=== PATIENT | female | born 1970 | race Caucasian/White ===

== ENCOUNTER 2017-07-07 18:41 | Observation (INO) | payer OTHER ==
[2017-07-07] MEDS ORDERED: ONDANSETRON HCL IV 4 MG/2 ML VIAL IVP ONE ×2 (18:55→21:03)
--- NOTE | 2017-07-07 18:59 | Emergency Department Record ---
History of Present Illness - General Chief Complaint: Abdominal Pain Stated Complaint: VOMITTING,PAIN JUST BELOW THE RIBS Time Seen by Provider: 07/07/17 18:54 Source: Patient Mode of Arrival: Ambulatory Limitations: No limitations - History of Present Illness Initial Comments: 46 yo female presents to ED for evaluation of epigastric abdominal pain and vomiting x 2 that began 1.5 hours prior to arrival. Patient reports eating a large [place]ian meal prior to her symptoms starting, denies fevers, chills, or recent illness. Patient denies previous abdominal surgeries, and denies health problems at her baseline. MD Complaint: Abdominal pain Onset/Timin -: Minutes(s) Location: Epigastric Radiation: LUQ, RUQ Severity: Moderate Quality: Aching Consistency: Constant Improves With: Nothing Worsens With: Nothing Associated Symptoms: Denies other symptoms - Related Data Patient : No Allergies Allergy/AdvReac Type Severity Reaction Status Date / Time No Known Drug Allergies Allergy Verified 07/07/17 18:47 Review of Systems Constitutional: Denies: Chills, Fever, Malaise, Night sweats Eyes: Denies: Eye discharge, Eye pain ENT: Denies: Congestion, Ear pain, Epistaxis Respiratory: Denies: Cough, Dyspnea Cardiovascular: Denies: Chest pain, Dyspnea on exertion Endocrine: Denies: Fatigue, Heat or cold intolerance Gastrointestinal: Reports: Abdominal pain, Nausea, Vomiting. Denies: Constipation Genitourinary: Denies: Incontinence, Retention Musculoskeletal: Denies: Arthralgia, Back pain, Gout, Joint swelling Skin: Denies: Bruising, Change in color Neurological: Denies: Abnormal gait, Confusion, Headache, Seizure Psychiatric: Denies: Anxiety Hematological/Lymphatic: Denies: Anemia, Blood Clots Past Medical History - SOCIAL HISTORY Smoking Status: Never smoker Drug Use: None - RESPIRATORY Hx Respiratory Disorders: No - CARDIOVASCULAR Hx Cardio Disorders: No - NEURO Hx Neuro Disorders: No - GI Hx GI Disorders: No - Hx Genitourinary Disorders: No - ENDOCRINE Hx Endocrine Disorders: No - MUSCULOSKELETAL Hx Musculoskeletal Disorders: No - PSYCH Hx Psych Problems: Yes Hx Anxiety: Yes Hx Depression: Yes - HEMATOLOGY/ONCOLOGY Hx Hematology/Oncology Disorders: No Physical Exam - General General Appearance: Alert, Oriented x3, Cooperative, Moderate distress Limitations: No limitations - Head Head exam: Atraumatic, Normocephalic, Normal inspection Head exam detail: negative: Abrasion, Contusion, Ziegler's sign, General tenderness, Hematoma, Laceration - Eye Eye exam: Normal appearance. negative: Conjunctival injection, Periorbital swelling, Periorbital tenderness, Scleral icterus - ENT Ear exam: negative: Auricular hematoma, Auricular trauma Nasal Exam: negative: Active bleeding, Discharge, Dried blood, Foreign body Mouth exam: negative: Drooling, Laceration, Muffled voice, Tongue elevation - Neck Neck exam: Normal inspection. negative: Meningismus, Tenderness - Respiratory Respiratory exam: Normal lung sounds bilaterally. negative: Rales, Respiratory distress, Rhonchi, Stridor - Cardiovascular Cardiovascular Exam: Regular rate, Normal rhythm, Normal heart sounds - GI/Abdominal GI/Abdominal exam: Soft, Tenderness (Mild TTP epigastric pain on examination). negative: Rebound, Rigid - Rectal Rectal exam: Deferred - exam: Deferred - Extremities Extremities exam: Normal inspection. negative: Calf tenderness, Pedal edema, Tenderness - Back Back exam: Denies: CVA tenderness (R), CVA tenderness (L) - Neurological Neurological exam: Alert, Normal gait, Oriented X3 - Psychiatric Psychiatric exam: Normal affect, Normal mood - Skin Skin exam: Normal color. negative: Abrasion Type of lesion: negative: abrasion Course - Reevaluation(s) Reevaluation #1: 07/07/17 19:32 Labs reviewed, mild elevation AST/ALT, labs are otherwise grossly unremarkable for an acute process. Reevaluation #2: 07/07/17 20:20 CT Abdomen and Pelvis: GB wall thickening with stones present Mild surrounding fat stranding suggesting early cholecystitis No duct dilatation Dr. Manley paged for consultation. Reevaluation #3: 07/07/17 20:56 Awaiting return page from Dr. Manley, case was discussed with Devika Wilder, will admit to medicine with surgery consultation in the morning. Patient and her were updated on the plan of care as discussed. Medical Decision Making - Lab Data Result diagrams: 07/07/17 19:00 07/07/17 19:00 Disposition Disposition: Admit Clinical Impression: Acute cholecystitis Disposition: Still a Patient at [facility] Decision to Admit: Admit from ER Decision to Admit Date: 07/07/17 Decision to Admit Time: 20:50 Condition: (2) Stable Forms: Patient Portal Access Time of Disposition: 20:51 Quality - Quality Measures Quality Measures: N/A - Blood Pressure Screening Does Patient Have Any of the Following: No Blood Pressure Classification: Pre-Hypertensive BP Reading Systolic Measurement: 135 Diastolic Measurement: 76 Screening for High Blood Pressure: < Pre-Hypertensive BP, F/U Documented > [ G8950] Pre-Hypertensive Follow-up Interventions: Referral to alternative/primary care provider.
[2017-07-07] MEDS ORDERED: 0.9 % SODIUM CHLORIDE 1000ML 1,000 ML IV SCH (19:00)
[2017-07-07 19:11] LABS: BASO % 0.4 % (0-6); EOS % 1.4 % (0-6); HEMATOCRIT 36.7 % (35.0-47.0); HEMOGLOBIN 12.3 gm/dl (11.6-16.0); LYMPH % 23.4 % (16-45); MEAN CELL VOLUME 84.8 fl (81-97); MEAN CORPUSCULAR HEMOGLOBIN 28.4 pg (27-33); MEAN CORPUSCULAR HGB CONC 33.5 g/dl (32-36); MEAN PLATELET VOLUME 9.6 fl (7.4-10.4); MONO % 8.8 % (0-9); PLATELET COUNT 248 K/uL (130-400); RED BLOOD COUNT 4.33 M/uL (3.80-5.40); RED CELL DISTRIBUTION WIDTH 13.5 % (11.5-14.5); WHITE BLOOD COUNT W/O DIFF 8.3 K/uL (4.2-12.2)
[2017-07-07 19:12] LABS: URINE APPEARANCE CLEAR; URINE BILIRUBIN NEGATIVE (NEGATIVE); URINE BLOOD TRACE-I (NEGATIVE); URINE COLOR YELLOW; URINE GLUCOSE (UA) NEGATIVE (NEGATIVE); URINE KETONE NEGATIVE (NEGATIVE); URINE LEUKOCYTE ESTERASE NEGATIVE (NEGATIVE); URINE NITRITE NEGATIVE (NEGATIVE); URINE PROTEIN NEGATIVE (NEGATIVE)
[2017-07-07 19:15] LABS: HCG,QUALITATIVE URINE NEGATIVE (NEGATIVE)
[2017-07-07 19:24] LABS: BLOOD UREA NITROGEN 12 mg/dL (6-20); CREATININE 0.7 mg/dL (0.5-0.9); EST GLOMERULAR FILTRATION RATE > 60 mL/min; TOTAL PROTEIN 7.2 g/dL (6.6-8.7)
[2017-07-07 19:25] LABS: URINE BACTERIA FEW; URINE EPITHELIAL CELLS 0 - 2 (FEW); URINE RBC 0 - 2 (NONE SEEN); URINE WBC 0 - 2 (0-2/hpf)
[2017-07-07 19:26] LABS: GLUCOSE,RANDOM 121 mg/dL (74-109)
[2017-07-07 19:29] LABS: ALB/GLOB RATIO 1.3 (1.1-1.8); ALKALINE PHOSPHATASE 104 U/L (35-104); ALT/SGPT 42 U/L (<33); AST/SGOT 59 U/L (10.0-35.0); LIPASE 41 U/L (13-60)
[2017-07-07] MEDS ORDERED: MORPHINE SULFATE 5 MG/ML PFS IVP ONE (19:47)
[2017-07-07] MEDS ORDERED: AMPICILLIN SODIUM/SULBACTAM NA 3 G in 0.9 % SODIUM CHLORIDE 100ML 100 ML IVPB ONE (20:29)
[2017-07-07] MEDS ORDERED: SEVOFLURANE 250 ML INH ONE (21:03)
[2017-07-07] MEDS ORDERED: BUPIVACAINE 0.75% W/EPI MPF 30ML VIAL IVP ONE (21:03)
[2017-07-07] MEDS ORDERED: GLYCOPYRROLATE 0.2 MG/ML ML IV ONE (21:03)
[2017-07-07] MEDS ORDERED: KETOROLAC 30 MG/ML VIAL IVP ONE (21:03)
[2017-07-07] MEDS ORDERED: MIDAZOLAM HCL 2MG/2ML VIAL IV ONE (21:03)
[2017-07-07] MEDS ORDERED: SUCCINYLCHOLINE 20 MG/ML 10ML IVP ONE (21:03)
[2017-07-07] MEDS ORDERED: ONDANSETRON HCL IV 4 MG/2 ML VIAL IVP PRN (21:03)
[2017-07-07] MEDS ORDERED: NEOSTIGMINE 1 MG/1 ML,10ML VIAL IV ONE (21:03)
[2017-07-07] MEDS ORDERED: PROPOFOL 10 MG/ML VIAL IV ONE (21:03)
[2017-07-07] MEDS ORDERED: ROCURONIUM BROMIDE 50MG/5ML VIAL IV ONE (21:03)
[2017-07-07] MEDS ORDERED: LIDOCAINE 2% MDV (20MG/ML) 20ML VIAL IV ONE (21:03)
[2017-07-07] MEDS ORDERED: FENTANYL PF 100MCG/2ML VIAL IV ONE (21:03)
[2017-07-07] MEDS ORDERED: MORPHINE SULFATE 5 MG/ML PFS IVP PRN (21:03)
[2017-07-07] MEDS ORDERED: ATORVASTATIN 20 MG TABLET PO SCH (22:00)
[2017-07-07] MEDS: 0.9 % SODIUM CHLORIDE 1000ML 1,000 ML IV PRN (22:04)
[2017-07-08] MEDS: AMPICILLIN SODIUM/SULBACTAM NA 3 G in 0.9 % SODIUM CHLORIDE 100ML 100 ML IVPB SCH ×2 (03:26→08:21)
[2017-07-08] MEDS: 0.9 % SODIUM CHLORIDE 1000ML 1,000 ML IV PRN (06:14)
--- NOTE | 2017-07-08 07:34 | CT SCAN REPORT ---
EXAM: CT SCAN OF THE ABDOMEN AND PELVIS WITH CONTRAST HISTORY: PAIN ACROSS THE ABDOMEN UNDER THE RIB CAGE FOR THE PAST TWO HOURS. TECHNIQUE: Standard CT imaging of the abdomen and pelvis was performed with contrast. 100 ml of Omnipaque 300 were administered. Comparison: 05/20/16. FINDINGS: There is minor dependent atelectasis at the lung bases. The lung bases are otherwise clear. The liver appears normal. The gallbladder contains numerous small calcified stones. There is the suggestion for mild wall thickening and minor pericholecystic fat stranding. There is no biliary ductal dilatation. The pancreas, spleen, and adrenal glands are normal. Both kidneys and ureters are unremarkable. The aorta is normal in caliber. There is no retroperitoneal lymph adenopathy. The stomach and epigastrium are normal. The large and small bowel loops including the appendix are normal. There are no focal inflammatory changes. There is no pneumoperitoneum or ascites. There are multiple cysts within the left ovary, the largest measures 3.6 x 2.9 cm. Follow-up is recommended to confirm resolution. The uterus and right ovary are normal. There is no free fluid within the pelvis. The urinary bladder is unremarkable. Degenerative changes are present within the spine. A small fat containing periumbilical hernia is present and is unchanged. IMPRESSION: 1. CHOLELITHIASIS WITH SUGGESTION FOR MILD GALLBLADDER THICKENING AND PERICHOLECYSTIC INFLAMMATION. THE APPEARANCE IS SUSPICIOUS FOR DEVELOPING ACUTE CHOLECYSTITIS. 2. THERE IS NO BILIARY DUCTAL DILATATION. 3. MULTIPLE LEFT OVARIAN CYSTS THE LARGEST OF WHICH MEASURES 3.6 X 2.9 CM. A FOLLOW-UP PELVIC ULTRASOUND IS RECOMMENDED TO CONFIRM RESOLUTION. 4. SMALL FAT CONTAINING PERIUMBILICAL HERNIA. JOB NUMBER: [id number] [facility]
--- NOTE | 2017-07-08 09:25 | History & Physical ---
History of Present Illness - Date of Service Date of Service for History & Physical: 07/08/17 - History of Present Illness Admitting Diagnosis: Acute cholecystitis. Nausea/vomiting History of Present Illness: 46 y/o female with history of high cholesterol and anxiety/depression presented to ER with 1.5 hour of epigastric abdominal pain and vomiting x 2 after eating large meal of greenlandic food. Denies recent illness, diarrhea, sick contacts. Is not a smoker While in ED CT abdomen showed gall bladder wall thickening with fat stranding consistent with cholecystitis. WBC count normal. Liver enzymes slightly elevated, lipase normal. Unasyn 3gm Q 6 hrs, NPO, IV analgesia initiated in ED Admitted to Medicine awaiting surgical consult this am by Dr Manley. Nausea and vomiting subsided since admit, continues to have upper abdominal " soreness". Has been afebrile, VSS Travel Screening - Travel/Exposure Within Last 30 Days Have you traveled within the last 30 days?: No - Travel/Exposure Within Last Year Have you traveled outside the [place] in the last year?: Yes Location Detail:: [facility] in October 2016 - Additonal Travel Details Have you been exposed to anyone with a communicable illness?: No - Travel Symptoms Symptom Screening: None Review of Systems Constitutional: Denies: Chills, Fever, Malaise, Night sweats Eyes: Denies: Eye discharge, Eye pain ENT: Denies: Congestion, Ear pain, Epistaxis Respiratory: Denies: Cough, Dyspnea Cardiovascular: Denies: Chest pain, Dyspnea on exertion Endocrine: Denies: Fatigue, Heat or cold intolerance Gastrointestinal: Reports: Abdominal pain, Nausea, Vomiting. Denies: Constipation Genitourinary: Denies: Incontinence, Retention Musculoskeletal: Denies: Arthralgia, Back pain, Gout, Joint swelling Skin: Denies: Bruising, Change in color Neurological: Denies: Abnormal gait, Confusion, Headache, Seizure Psychiatric: Denies: Anxiety Hematological/Lymphatic: Denies: Anemia, Blood Clots Past Medical History - SOCIAL HISTORY Smoking Status: Never smoker Alcohol Use: Rare - RESPIRATORY Hx Respiratory Disorders: No - CARDIOVASCULAR Hx Cardio Disorders: No - NEURO Hx Neuro Disorders: Yes Hx Headaches: Yes (occass) - GI Hx GI Disorders: Yes Hx Abdominal Pain: Yes Hx Nausea/Vomiting: Yes - Hx Genitourinary Disorders: No - ENDOCRINE Hx Endocrine Disorders: No - MUSCULOSKELETAL Hx Musculoskeletal Disorders: Yes Hx Arthritis: Yes (toes and thumbs) - PSYCH Hx Psych Problems: Yes Hx Anxiety: Yes Hx Depression: Yes - HEMATOLOGY/ONCOLOGY Hx Hematology/Oncology Disorders: No Family Medical History Any Significant Family History?: Yes Hx Cancer: Father, Mother Hx Diabetes: Father Hx Heart Disease: Father Hx HTN: Father H&P Meds/Allergies - Allergies Allergies: Allergies Allergy/AdvReac Type Severity Reaction Status Date / Time No Known Drug Allergies Allergy Verified 07/07/17 18:47 - Home Medications Home Medications Medication Instructions Recorded Confirmed Last Taken Sertraline HCl [Zoloft] 50 mg PO DAILY 07/08/17 07/08/17 Unknown - Active Medications Active Medications: Current Medications Atorvastatin Calcium (Lipitor) 20 mg PO QHS [facility] Last Admin: 07/07/17 21:16 Dose: Not Given Famotidine (Pepcid) 20 mg PO PREOP ONE Stop: 07/08/17 09:31 Sodium Chloride () 1,000 mls @ 125 mls/hr IV .Q8H PRN PRN Reason: LARGE VOLUME IV Last Admin: 07/08/17 06:14 Dose: 125 mls/hr Ampicillin Sodium/Sulbactam (Sodium 3 g/ Sodium Chloride) 100 mls @ 200 mls/hr IVPB Q6H [facility] Last Infusion: 07/08/17 08:51 Dose: Infused Acetaminophen (Ofirmev) 1,000 mg in 100 mls @ 400 mls/hr IVPB PREOP ONE Stop: 07/08/17 09:44 Meclizine HCl (Antivert) 25 mg PO PREOP ONE Stop: 07/08/17 09:31 Metoclopramide HCl (Reglan) 10 mg PO PREOP ONE Stop: 07/08/17 09:31 Morphine Sulfate (Morphine Sulfate) 5 mg IVP Q4HR PRN PRN Reason: Abdominal Pain Stop: 07/14/17 21:04 Ondansetron HCl (Zofran) 4 mg IVP Q4H PRN PRN Reason: NAUSEA Sertraline HCl (Zoloft) 50 mg PO DAILY [facility] Last Admin: 07/08/17 09:15 Dose: Not Given Physical Exam - Vital Signs Vital Signs: Vital Signs - Last 24 Hrs Temp Pulse Pulse Resp BP BP BP 07/08/17 07:40 16 07/08/17 07:00 97.3 F L 63 133/83 07/08/17 03:03 98.3 F 65 16 116/73 07/07/17 23:00 98.9 F 77 16 144/89 07/07/17 21:33 66 18 07/07/17 21:04 98.1 F 79 18 136/80 07/07/17 21:03 99 F 66 16 143/89 Pulse Ox 07/08/17 07:40 07/08/17 07:00 93 L 07/08/17 03:03 94 L 07/07/17 23:00 94 L 07/07/17 21:33 07/07/17 21:04 98 07/07/17 21:03 98 - General General Appearance: Alert, Oriented x3, Cooperative, No acute distress Limitations: No limitations - Head Head exam: Atraumatic, Normocephalic, Normal inspection Head exam detail: negative: Abrasion, Contusion, Ziegler's sign, General tenderness, Hematoma, Laceration - Eye Eye exam: Normal appearance. negative: Conjunctival injection, Periorbital swelling, Periorbital tenderness, Scleral icterus - ENT Ear exam: negative: Auricular hematoma, Auricular trauma Nasal Exam: negative: Active bleeding, Discharge, Dried blood, Foreign body Mouth exam: negative: Drooling, Laceration, Muffled voice, Tongue elevation - Neck Neck exam: Normal inspection. negative: Meningismus, Tenderness - Respiratory Respiratory exam: Normal lung sounds bilaterally. negative: Rales, Respiratory distress, Rhonchi, Stridor - Cardiovascular Cardiovascular Exam: Regular rate, Normal rhythm, Normal heart sounds Peripheral Pulses: 2+: Dorsalis Pedis (R), Dorsalis Pedis (L) - GI/Abdominal GI/Abdominal exam: Soft, Tenderness (Mild TTP epigastric pain on examination). negative: Rebound, Rigid - Rectal Rectal exam: Deferred - exam: Deferred - Extremities Extremities exam: Normal inspection. negative: Calf tenderness, Pedal edema, Tenderness - Back Back exam: Denies: CVA tenderness (R), CVA tenderness (L) - Neurological Neurological exam: Alert, Normal gait, Oriented X3 - Psychiatric Psychiatric exam: Normal affect, Normal mood - Skin Skin exam: Normal color. negative: Abrasion Type of lesion: negative: abrasion Results - Labs Result Diagrams: 07/07/17 19:00 07/07/17 19:00 VTE H&P Assessment - Risk for VTE Risk for VTE: Yes Risk Level: Low Risk Assessment Date: 07/08/17 Risk Assessment Time: 09:24 VTE Orders Placed or Will Be Placed: Yes Plan - Detailed Diagnosis and Plan (1) Acute cholecystitis Current Visit: Yes Status: Acute Base Code: K81.0 - ACUTE CHOLECYSTITIS Comment: - surgical consult this am with Dr Manley for questionable open vs. laparascopic cholecyctectomy - Unasyn 3gm Q6hrs - Morphine 5mg IVP PRN for pain control - NPO - cholecystectomy pre-op protocol in place (2) Full code status Current Visit: Yes Status: Acute Base Code: Z78.9 - OTHER SPECIFIED HEALTH STATUS (3) DVT prophylaxis Current Visit: Yes Status: Acute Base Code: [id number] - Comment: - nursing to encourage frequent ambulation, no anticoagulation as pre-op
[2017-07-08] MEDS ORDERED: ACETAMINOPHEN 1,000 MG/100 ML BTL IVPB ONE (09:30)
[2017-07-08] MEDS ORDERED: MECLIZINE 25 MG TABLET PO ONE (09:30)
[2017-07-08] MEDS ORDERED: METOCLOPRAMIDE 10 MG TABLET PO ONE (09:30)
[2017-07-08] MEDS ORDERED: FAMOTIDINE 20MG TABLET PO ONE (09:30)
[2017-07-08] MEDS ORDERED: SERTRALINE HCL 50 MG TABLET PO SCH (10:00)
[2017-07-08] MEDS ORDERED: HYDROCODONE/APAP 5/325MG TABLET PO PRN (12:30)
--- NOTE | 2017-07-08 12:36 | Medical Records Consult ---
DATE OF CONSULTATION: 07/08/2017 REASON FOR CONSULTATION: Abdominal pain. HISTORY OF PRESENT ILLNESS: The patient is a 46-year-old female who has had about a 24-hour history of epigastric and right upper quadrant pain. This did radiate to the right flank and back and she felt like something was squeezing her chest. She was nauseated with this as well. She was seen in the [facility] ER where workup was done. This did show CT findings consistent with some mild pericholecystic edema with a gallbladder wall thickening. Stones were noted. Her white count was normal. Her bilirubin level was normal. She states that she has had this pain in the past after eating greasy or fatty foods. PAST MEDICAL HISTORY: Significant for hypercholesterolemia. PAST SURGICAL HISTORY: Left breast biopsy x2, tonsils, adenoids. CURRENT MEDICATIONS: Lipitor. ALLERGIES: No known medical allergies. SOCIAL HISTORY: Denies any tobacco or alcohol usage. PHYSICAL EXAMINATION: VITAL SIGNS: Stable. She is afebrile. HEART: Regular rate and rhythm. LUNGS: Clear. ABDOMEN: Soft. Mildly obese. May have a small supraumbilical hernia noted. EXTREMITIES: No trace of edema. IMPRESSION: Abdominal pain secondary to acute cholecystitis. PLAN: We did discuss cholecystectomy versus medical management. She desires surgical intervention. Risks include but are not limited to bleeding, infection, ductal injury, possible conversion to open, postoperative bile leak. She understood this fully. This will be scheduled for later today. We will fix her hernia at the same time. As always, thank you for this kind referral. I will keep you informed of her progress. JAGRUTI
--- NOTE | 2017-07-08 12:39 | Discharge Summary ---
Providers Discharge Summary Date: 07/08/17 Date of admission: 07/07/17 21:02 Expected Date of Discharge: 07/08/17 Attending physician: RAÚL HIDALGO Physical Exam - Vital Signs Vital Signs: Vital Signs - Last 24 Hrs Temp Pulse Pulse Resp BP BP BP 07/08/17 07:40 16 07/08/17 07:00 97.3 F L 63 133/83 07/08/17 03:03 98.3 F 65 16 116/73 07/07/17 23:00 98.9 F 77 16 144/89 07/07/17 21:33 66 18 07/07/17 21:04 98.1 F 79 18 136/80 07/07/17 21:03 99 F 66 16 143/89 Pulse Ox 07/08/17 07:40 07/08/17 07:00 93 L 07/08/17 03:03 94 L 07/07/17 23:00 94 L 07/07/17 21:33 07/07/17 21:04 98 07/07/17 21:03 98 - General General Appearance: Alert, Oriented x3, Cooperative, No acute distress Limitations: No limitations - Head Head exam: Atraumatic, Normocephalic, Normal inspection Head exam detail: negative: Abrasion, Contusion, Ziegler's sign, General tenderness, Hematoma, Laceration - Eye Eye exam: Normal appearance. negative: Conjunctival injection, Periorbital swelling, Periorbital tenderness, Scleral icterus - ENT Ear exam: negative: Auricular hematoma, Auricular trauma Nasal Exam: negative: Active bleeding, Discharge, Dried blood, Foreign body Mouth exam: negative: Drooling, Laceration, Muffled voice, Tongue elevation - Neck Neck exam: Normal inspection. negative: Meningismus, Tenderness - Respiratory Respiratory exam: Normal lung sounds bilaterally. negative: Rales, Respiratory distress, Rhonchi, Stridor - Cardiovascular Cardiovascular Exam: Regular rate, Normal rhythm, Normal heart sounds Peripheral Pulses: 2+: Dorsalis Pedis (R), Dorsalis Pedis (L) - GI/Abdominal GI/Abdominal exam: Soft, Tenderness (mild generalized). negative: Rebound, Rigid - Rectal Rectal exam: Deferred - exam: Deferred - Extremities Extremities exam: Normal inspection. negative: Calf tenderness, Pedal edema, Tenderness - Back Back exam: Denies: CVA tenderness (R), CVA tenderness (L) - Neurological Neurological exam: Alert, Normal gait, Oriented X3 - Psychiatric Psychiatric exam: Normal affect, Normal mood - Skin Skin exam: Normal color, Other (4 laparoscopic incisions intact with steri strips, RUQ incision with mild serous drainage). negative: Abrasion Type of lesion: negative: abrasion Hospitalization - Hospitalization Admission Diagnosis: Acute cholecystitis. Nausea/vomiting - Problem List/Discharge Diagnosis (1) Acute cholecystitis Current Visit: Yes Status: Acute Base Code: K81.0 - ACUTE CHOLECYSTITIS Comment: - surgical consult this am with Dr Manley, laparoscopic cholecyctectomy performed without complications - follow up with Dr Manley in 2-3 weeks, PCP as needed - may discharge home when post-op criteria is met (2) Full code status Current Visit: Yes Status: Acute Base Code: Z78.9 - OTHER SPECIFIED HEALTH STATUS (3) DVT prophylaxis Current Visit: Yes Status: Acute Base Code: [id number] - Comment: - nursing to encourage frequent ambulation - Hospitalization Course Disposition: Home, Self-Care Hospital Course: 46 y/o female with history of high cholesterol and anxiety/depression presented to ER with 1.5 hour of epigastric abdominal pain and vomiting x 2 after eating large meal of ku[place]i food. Denies recent illness, diarrhea, sick contacts. Is not a smoker While in ED CT abdomen showed gall bladder wall thickening with fat stranding consistent with cholecystitis. WBC count normal. Liver enzymes slightly elevated, lipase normal. Unasyn 3gm Q 6 hrs, NPO, IV analgesia initiated in ED Admitted to Medicine awaiting surgical consult this am by Dr Manley. Nausea and vomiting subsided since admit, continues to have upper abdominal " soreness". Has been afebrile, VSS Condition at Discharge: (2) Stable Discharge Diagnosis: Acute cholecystitis s/p laparoscopic cholecystectomy Discharge Medications - Discharge Medications Home Medications: Ambulatory Orders Atorvastatin Calcium [Lipitor] 20 mg PO QHS 05/20/16 [Last Taken 07/07/17] Sertraline HCl [Zoloft] 50 mg PO DAILY 07/08/17 [Last Taken Unknown] Discharge Plan - Discharge Instructions Activity at Discharge: Increase Activity as Tolerated, Resume Usual Activities As Tolerated Diet at Discharge: Low Fat, Low Cholesterol Wound Primary Dressing Type: Steri Strips Instructions: Hydrocodone/Acetaminophen (By mouth), Laparoscopic Cholecystectomy (DC) Additional Instructions: Keep follow up appointment with Dr Manley as scheduled. Keep area clean and dry. May shower tomorrow Resume home meds Quality Measures - Quality Measures Quality Measures: Documentation of Current Medications in Medical Record, Screening for High Blood Pressure and F/U Documented - Current Medications Quality Measure: Measure #130: Documentation of Current Medications Documentation of Current Medications: <Current Medications Documented/Reviewed> [G8427] - Blood Pressure Screening Quality Measure: Screening for High Blood Pressure and Follow-Up Documented Does Patient Have Any of the Following: No Blood Pressure Classification: Pre-Hypertensive BP Reading Systolic Measurement: 136 Diastolic Measurement: 80 Screening for High Blood Pressure: < Pre-Hypertensive BP, F/U Documented > [ G8950] Pre-Hypertensive Follow-up Interventions: Follow-up with rescreen every year. - Elder Abuse Suspicion Index EASI Reference Information: Evans LIPSCOMB, Genaro C, Chelsea D, Brian Conley.Development and validation of a tool to assist physicians identification of elder abuse: The Elder Abuse Suspicion Index (EASI ). Journal of Elder Abuse and Neglect, 2008; 20 (3): 276-300.
--- NOTE | 2017-07-09 11:10 | Operative Note ---
DATE OF SURGERY: 07/08/2017 Surgeon: Ad Manley DO PREOPERATIVE DIAGNOSES: 1. Acute cholecystitis. 2. Incarcerated umbilical hernia. POSTOPERATIVE DIAGNOSES: 1. Acute cholecystitis. 2. Incarcerated umbilical hernia. OPERATION: 1. Laparoscopic cholecystectomy. 2. Umbilical herniorrhaphy with primary repair. Indication: The patient is a 46-year-old female who was admitted last night with clinical findings of acute cholecystitis. We did discuss cholecystectomy. Risks, benefits, and alternatives were discussed. Risks include but are not limited to bleeding, infection, acute or chronic pain, common bile ductal injury, bile leak. She understood this fully. She also had an incarcerated umbilical hernia which we discussed repairing as well. Thereafter, consent was signed and questions were answered. PROCEDURE: She was taken to the operating room and placed in a supine position. General anesthesia was administered per the department of anesthesia. The patient's abdomen was prepped and draped in the usual sterile fashion. At this time, adequate timeout was performed. She did receive preoperative antibiotics as well as DVT prophylaxis. At this time, the infraumbilical region was anesthetized with a total of 5 mL of 0.25% Sensorcaine with epinephrine. A 4 cm curvilinear infraumbilical incision was made. This was carried down to the anterior rectus fascia. The umbilical stalk was dissected free from underlying hernia sac and lifted in a cephalad direction. Clean circumferential fascial edges were obtained. The hernia sac was then amputated and passed off the field. Sherwin clamps were placed on the fascial edges and stay sutures of 0 Vicryl were placed. Through the hernia, a 10 mm blunt Camille port was placed. Adequate pneumoperitoneum was established. Under direct visualization, additional 5 mm epigastric and two 5 mm right subcostal ports were placed. General exam was done. The patient's gallbladder was noted to be edematous and dilated. There were dense adhesions of omentum and part of the duodenum in the anterior aspect. This was grasped and retracted in cephalad and lateral direction opening up the angle of Calot. The omentum was taken down with Mario harmonic. The duodenum was taken down with the laparoscopic Metzenbaum scissors. At this time, the triangle of Calot was dissected free with the Mario harmonic. The cystic duct and cystic artery were clearly identified. Each one was circumferentially dissected out in a 360-degree fashion. There was no aberrant anatomy, no posterior ductal structures. Each one was doubly clipped and cut in a standard fashion. Gallbladder was then taken off the liver bed with Mario harmonic. This was extracted through the hernia itself. At this time, the right upper quadrant was rechecked and found to be hemostatic. No bleeding. No bile leak. No bowel injury noted. The patient was leveled out. The pneumoperitoneum was released. All ports were removed. The hernia was then closed primarily with a #1 Ethibond in interrupted fashion. The umbilical skin was tacked down to the fascia with 3-0 Vicryl, skin was closed with a 4-0 Vicryl. All port sites were closed with 4-0 Vicryl. The patient was taken to the recovery room in satisfactory condition. FINDINGS AT THE TIME OF SURGERY: Chronic cholecystitis. Incarcerated umbilical hernia. Repaired as above. CC: Kenneth CHAND
== END 2017-07-08 15:50 | disposition home or self-care (01) ==
LOC: ER 18:41 → MEDSURG 21:02
PROVIDERS: ADMIT Internal Medicine; ATTEND Internal Medicine
DX: K81.1 Chronic cholecystitis (principal); K42.0 Umbilical hernia with obstruction, without gangrene; E78.00 Pure hypercholesterolemia, unspecified; F41.8 Other specified anxiety disorders
CPT/HCPCS: 47562; 49653; 00790; 99285 ×2; 96365; 96375; 83690; 85025; 80053; 81001; 81025; 74177; G0378 ×2; Q9967; J0295 ×2; J1885; J2405; J3010; J2270; J3490; J0330; J2710; J7030